=== PATIENT | male | born 1960 | race Caucasian/White ===

== ENCOUNTER → 2022-11-24 10:51 | Outpatient (CLI) | payer BC, SELFPAY ==
--- NOTE | 2022-11-24 11:17 | XR_ITS ---
FINAL REPORT CLINICAL HISTORY: SWELLING OF RT KNEE JOINT NEW RT KNEE PAIN twisted at ayla FINDINGS: AP, lateral and oblique views of the right knee were obtained. There is no prior exam for comparison. There is no acute osseous abnormality of the right knee. There are mild degenerative changes present. The soft tissues are normal. There is no joint effusion. IMPRESSION: No acute osseous abnormality of the right knee. Reviewed, Interpreted and Dictated by Niyah Whitney MD Transcribed by Sanjana Reyes Authenticated and [facility]
== END ==
PROVIDERS: PCP Family Medicine; Visit Provider Family Medicine
DX: M25.561 Pain in right knee (principal); M25.461 Effusion, right knee
CPT/HCPCS: 73562